=== PATIENT | female | born 2000 | race Caucasian/White ===

== ENCOUNTER 2022-03-11 15:21 | Outpatient (REF) | payer OTHER, SELFPAY ==
--- NOTE | ~2022-03-11 | XR_ITS ---
EXAMINATION: XR SHOULDER, LEFT CLINICAL INFORMATION: Pain COMPARISON: None TECHNIQUE: AP external rotation, Grashey, scapular Y, and axillary views of the left shoulder. FINDINGS: The gleno- humeral and AC joints are maintained normal. No acute fracture, dislocation or subluxation seen. The soft tissues are normal. XR/XR shoulder LT min 2V IMPRESSION: Unremarkable left shoulder exam.
== END 2022-03-11 15:22 | disposition home or self-care (01) ==
LOC: HO.HOSX 15:21
PROVIDERS: Visit Provider Physician Assistant
DX: M25.312 Other instability, left shoulder (principal)
CPT/HCPCS: 73030; 99202

== ENCOUNTER 2022-06-14 15:41 | Outpatient (REF) | payer OTHER, SELFPAY ==
--- NOTE | ~2022-06-14 | XR_ITS ---
EXAMINATION: ORBITS FOR MRI CLINICAL INFORMATION: Pre-MRI. COMPARISON: None. TECHNIQUE: 3 views orbits. FINDINGS: Overlying the left maxillary sinus, and possibly loose within it, is a rounded metallic density with the appearance of a BB. Since BBs are usually made of steel this object would be expected to be ferromagnetic. Paranasal sinuses and mastoid air cells are well aerated. No orbital fracture is appreciated. XR/XR pre mri screening IMPRESSION: Rounded metallic foreign body probably within the left maxillary sinus which if it is a BB would be expected to be ferromagnetic. Would not approve MRI at this time without getting more information.
== END 2022-06-14 15:42 | disposition home or self-care (01) ==
LOC: HO.MRI 15:41
PROVIDERS: Visit Provider Physician Assistant
DX: Z13.89 Encounter for screening for other disorder (principal)